=== PATIENT | male | born 2000 | race Caucasian/White ===

== ENCOUNTER 2024-09-23 16:07 | Emergency (ER) | payer MEDICAID ==
[~2024-09-23] VITALS: Ht 172.7 cm; Wt 96.0 kg
[2024-09-23 16:10] VITALS: O2SAT 99
[2024-09-23 20:58] VITALS: BP 137/94; PULSE 77; RESP 19; TEMP 37.1; O2SAT 99
== END 2024-09-23 21:00 | disposition home or self-care (01) ==
LOC: ER 16:07
DX: Z00.00 Encounter for general adult medical examination without abnormal findings (principal); F84.0 Autistic disorder; V43.62XA Car passenger injured in collision with other type car in traffic accident, initial encounter; Y93.89 Activity, other specified; Y92.89 Other specified places as the place of occurrence of the external cause; Y99.8 Other external cause status
CPT/HCPCS: 99281